=== PATIENT | male | born 1995 | race Caucasian/White ===

== ENCOUNTER 2016-05-13 02:37 | Emergency (ER) | payer OTHER ==
[2016-05-13 02:43] VITALS: TEMP 98.8
--- NOTE | 2016-05-13 02:50 | EDPHY ---
H & P Stated Complaint: abd pain and diarrhea HPI/ROS: HPI CHIEF COMPLAINT: Abdominal pain, periumbilical, diarrhea HISTORY OF PRESENT ILLNESS: This patient very pleasant 21-year-old male otherwise healthy no significant medical or surgical history he presents emergency room with periumbilical abdominal pain and diarrhea patient tells me that around 830 developed sudden onset of crampy lower abdominal pain is localized to his periumbilical region he had multiple episodes of watery brown diarrhea. Tells me 0 he had multiple episodes of diarrhea he could not get off the toilet. Denies vomiting, endorses nausea, he states that he did have a brief episode that his diarrhea resolved he tried to go to sleep however had persistent lower abdominal pain and then had return of diarrhea that is when he decided to come to the emergency room. Currently at this time he tells me that his abdominal pain is actually improved, he no longer has nausea and does not feel the urge to have diarrhea. Denies fever. He tells me that he ate at his parents house this evening he had tofu. Past Medical History: No significant medical history Past Surgical History: No significant surgical history Social History: [employer] student, denies illicit drugs, occasional alcohol use, denies tobacco Family History: Noncontributory ROS REVIEW OF SYSTEMS: A comprehensive 10 point review of systems is otherwise negative aside from elements mentioned in the history of present illness. Exam Constitutional triage nursing summary reviewed, vital signs reviewed, awake/ alert. Eyes normal conjunctivae and sclera, EOMI, PERRLA. HENT normal inspection, atraumatic, moist mucus membranes, no epistaxis, neck supple/ no meningismus, no raccoon eyes. Respiratory clear to auscultation bilaterally, normal breath sounds, no respiratory distress, no wheezing. Cardiovascular rate normal, regular rhythm, no murmur, no edema, distal pulses normal. Gastrointestinal mild tenderness palpation in the periumbilical region, there is no guarding or peritoneal signs, , no rebound, no guarding, normal bowel sounds, no distension, no pulsatile mass. Genitourinary no CVA tenderness. Musculoskeletal no midline vertebral tenderness, full range of motion, no calf swelling, no tenderness of extremities, no meningismus, good pulses, neurovascularly intact. Skin pink, warm, & dry, no rash, skin atraumatic. Neurologic awake, alert and oriented x 3, AAOx3, moves all 4 extremities equally, motor intact, sensory intact, CN II-XII intact, normal cerebellar, normal vision, normal speech. Psychiatric normal mood/affect. Heme/Lymph/Immune no lymphadenopathy. Differential diagnosis includes but is not limited to and in no particular order : GI illness, enteritis, gastroenteritis, appendicitis, gallbladder disease, diverticulitis, colitis, enteritis, perforated viscus, gastritis, GERD, esophagitis, urinary tract infection, pyelonephritis, kidney stones Medical Decision Making: This patient will have an IV established obtain blood work including abdominal labs lipase liver enzymes, CBC and BMP will be hydrated with IV fluids declined pain medicine at this time. He will need a CT scan of his abdomen pelvis with IV contrast to rule out acute appendicitis given his periumbilical pain however given large amounts watery diarrhea most likely viral illness GI illness. Will re-evaluate after fluids. Re-evaluation: CT scan of the Abdomen pelvis with IV contrast The results of the study are negative for acute inflammatory process there is enteritis seen on his CT scan, normal appendix visualized by radiologist . The study was read by Dr. Bell. I viewed the images myself on the PACS system. 0412: re-evaluation patient is resting comfortably did have 1 episode of diarrhea here in the emergency room I did not visualize any he did not save a stool specimen we will see if he can go again to give a stool specimen he does report bright red blood per rectum 0539: re-examination patient feels much better is requesting be discharged home. He was unable to produce a diarrheal stool sample. I did recommend if he has ongoing diarrhea, bloody stools vomiting worsening abdominal pain or fever he needs return immediately to the emergency room he understands this. We will refer her to GI. Most likely has enteritis with a GI illness with a diarrheal illness causing possible internal hemorrhoidal bleed. He does understand if he has dark black stool or continues to have significant rectal bleeding to return emergency room. Return if fever, abdominal pain or worsening diarrhea. He understands. [place] diet, clear fluids next 24 for 48 hours no fatty spicy greasy foods he understands. Source: Patient - Personal History Current Tetanus/Diphtheria Vaccine: Yes Current Tetanus Diphtheria and Acellular Pertussis (TDAP): Yes - Medical/Surgical History Hx Asthma: No Hx Chronic Respiratory Disease: No Hx Diabetes: No Hx Cardiac Disease: No Hx Renal Disease: No Hx Cirrhosis: No Hx Alcoholism: No Hx HIV/AIDS: No Hx Splenectomy or Spleen Trauma: No - Social History Smoking Status: Never smoked Constitutional: Initial Vital Signs Temperature (C) 37.1 C 05/13/16 02:40 Heart Rate 60 05/13/16 02:40 Respiratory Rate 18 05/13/16 02:40 Blood Pressure 120/71 05/13/16 02:40 O2 Sat (%) 97 05/13/16 02:40 O2 Delivery Mode Room Air Allergies/Adverse Reactions: No Known Allergies Allergy (Unverified 05/13/16 02:39) Home Medications: Medication Instructions Recorded Ondansetron HCl [Zofran] 4 mg PO Q4-6PRN PRN #10 tablet 05/13/16 Medical Decision Making - Data Points Laboratory Results: Laboratory Results 05/13/16 02:54 05/13/16 02:54 05/13/16 05/13/16 03:30 02:54 WBC 18.70 H 10^3/uL (3.80-9.50) RBC 5.79 10^6/uL (4.40-6.38) Hgb 15.2 g/dL (13.7-17.5) Hct 45.0 % (40.0-51.0) MCV 77.7 L fL (81.5-99.8) MCH 26.3 L pg (27.9-34.1) MCHC 33.8 g/dL (32.4-36.7) RDW 13.9 % (11.5-15.2) Plt Count 372 10^3/uL (150-400) MPV 9.2 fL (8.7-11.7) Neut % (Auto) 82.2 H % (39.3-74.2) Lymph % (Auto) 10.1 L % (15.0-45.0) [place] % (Auto) 5.6 % (4.5-13.0) Eos % (Auto) 1.1 % (0.6-7.6) Baso % (Auto) 0.3 % (0.3-1.7) Nucleat RBC Rel Count 0.0 % (0.0-0.2) Absolute Neuts (auto) 15.37 H 10^3/uL (1.70-6.50) Absolute Lymphs (auto) 1.89 10^3/uL (1.00-3.00) Absolute Monos (auto) 1.04 H 10^3/uL (0.30-0.80) Absolute Eos (auto) 0.20 10^3/uL (0.03-0.40) Absolute Basos (auto) 0.06 10^3/uL (0.02-0.10) Absolute Nucleated RBC 0.00 10^3/uL (0-0.01) Immature Gran % 0.7 % (0.0-1.1) Immature Gran # 0.14 H 10^3/uL (0.00-0.10) Sodium 143 mEq/L (134-144) Potassium 3.9 mEq/L (3.5-5.2) Chloride 102 mEq/L (97-110) Carbon Dioxide 26 mEq/l (22-31) Anion Gap 15 mEq/L (8-16) BUN 14 mg/dL (7-23) Creatinine 0.7 mg/dL (0.7-1.3) Estimated GFR > 60 Glucose 102 H mg/dL (70-100) Calcium 10.1 mg/dL (8.5-10.4) Total Bilirubin 0.8 mg/dL (0.1-1.4) Conjugated Bilirubin 0.4 mg/dL (0.0-0.5) Unconjugated Bilirubin 0.4 mg/dL (0.0-1.1) AST 48 IU/L (17-59) ALT 63 IU/L (21-72) Alkaline Phosphatase 67 IU/L (38-126) Total Protein 7.9 g/dL (6.3-8.2) Albumin 4.9 g/dL (3.5-5.0) Lipase 55.0 IU/L (23-300) Urine Color YELLOW Urine Appearance CLEAR Urine pH 6.0 (5.0-7.5) Ur Specific [place] 1.016 (1.002-1.030) Urine Protein NEGATIVE (NEGATIVE) Urine Ketones NEGATIVE (NEGATIVE) Urine Blood NEGATIVE (NEGATIVE) Urine Nitrate NEGATIVE (NEGATIVE) Urine Bilirubin NEGATIVE (NEGATIVE) Urine Urobilinogen NEGATIVE EU (0.2-1.0) Ur Leukocyte Esterase 1+ H (NEGATIVE) Urine RBC 1-3 /hpf (0-3) Urine WBC 15-25 H /hpf (0-3) Ur Epithelial Cells NONE SEEN /lpf (NONE-1+) Ur Culture Indicated? INDICATED H (NI) Urine Glucose NEGATIVE (NEGATIVE) Medications Given: Discontinued Medications Sodium Chloride (Ns) 2,000 mls @ 0 mls/hr IV ONCE ONE PRN Reason: Wide Open Stop: 05/13/16 02:56 Last Admin: 05/13/16 02:57 Dose: 2,000 mls Sodium Chloride (Ns) 1,000 mls @ 0 mls/hr IV ONCE ONE PRN Reason: Wide Open Stop: 05/13/16 04:12 Last Admin: 05/13/16 04:19 Dose: 1,000 mls Morphine Sulfate (Morphine) 4 mg IVP EDNOW ONE Stop: 05/13/16 04:12 Last Admin: 05/13/16 04:20 Dose: 4 mg Ondansetron HCl (Zofran) 4 mg IVP EDNOW ONE Stop: 05/13/16 04:12 Last Admin: 05/13/16 04:20 Dose: 4 mg Departure - Departure Disposition: Home, Routine, Self-Care Clinical Impression: Abdominal pain Qualifiers: Abdominal location: generalized Qualifier Code: (R10.84) Generalized abdominal pain Diarrhea Qualifiers: Diarrhea type: unspecified type Qualifier Code: (R19.7) Diarrhea, unspecified Condition: Good Instructions: Dehydration (ED), Acute Diarrhea (ED) Additional Instructions: 1. stay well-hydrated drink lots of clear fluids water or Gatorade 2. do not eating any spicy fatty greasy foods have a very bland diet for the next 48 hours 3. if You develops worsening abdominal pain fever or continue have severe diarrhea or vomiting you need to return to the emergency room Referrals: [place],. [Primary Care Provider] - As per Instructions Prescriptions: Ondansetron HCl [Zofran] 4 mg PO Q4-6PRN PRN #10 tablet PRN Reason: Nausea/Vomiting, Use 1st
[2016-05-13] MEDS ORDERED: NS 2,000 ML IV ONE (02:55)
[2016-05-13 03:08] LABS: % IMMATURE GRANULYOCYTES 0.7 % (0.0-1.1); ABSOLUTE IMMATURE GRANULOCYTES 0.14 10^3/uL (0.00-0.10); ADD DIFF? NO; ADD MORPH? NO; ADD SCAN? NO; ATYPICAL LYMPHOCYTE FLAG 0 (0-99); FRAGMENT RBC FLAG 0 (0-99); HEMOGLOBIN 15.2 g/dL (13.7-17.5); LEFT SHIFT FLG 10 (0-99); LIPEMIA HEMOLYSIS FLAG 90 (0-99); MEAN CELL HEMOGLOBIN 26.3 pg (27.9-34.1); MEAN CELL HEMOGLOBIN CONCENTR. 33.8 g/dL (32.4-36.7); MEAN CELL VOLUME 77.7 fL (81.5-99.8); MEAN PLATELET VOLUME 9.2 fL (8.7-11.7); PLATELET CLUMPS FLAG 10 (0-99); PLATELET COUNT 372 10^3/uL (150-400); RED BLOOD CELL COUNT 5.79 10^6/uL (4.40-6.38); RED CELL DISTRIBUTION WIDTH 13.9 % (11.5-15.2)
[2016-05-13] MEDS ORDERED: IOPAMIDOL (ISOVUE-300) 50 ML VIAL IV ONE (03:11)
[2016-05-13 03:27] LABS: ALANINE AMINOTRANSFERASE 63 IU/L (21-72); ALBUMIN 4.9 g/dL (3.5-5.0); ALKALINE PHOSPHATASE 67 IU/L (38-126); ANION GAP 15 mEq/L (8-16); ASPARTATE AMINOTRANSFERASE 48 IU/L (17-59); BILIRUBIN,TOTAL 0.8 mg/dL (0.1-1.4); BILIRUBIN-CONJUGATED 0.4 mg/dL (0.0-0.5); BILIRUBIN-UNCONJUGATED 0.4 mg/dL (0.0-1.1); CALCIUM 10.1 mg/dL (8.5-10.4); CARBON DIOXIDE 26 mEq/l (22-31); CHLORIDE 102 mEq/L (97-110); CREATININE 0.7 mg/dL (0.7-1.3); GLOMERULAR FILTRATION RATE > 60; GLUCOSE 102 mg/dL (70-100); POTASSIUM 3.9 mEq/L (3.5-5.2); SODIUM 143 mEq/L (134-144); TOTAL PROTEIN 7.9 g/dL (6.3-8.2)
[2016-05-13 03:46] LABS: COLOR YELLOW; LEUKOCYTE ESTERASE,URINE 1+ (NEGATIVE); NITRITE,URINE NEGATIVE (NEGATIVE)
[2016-05-13 04:07] LABS: WBC,URINE 15-25 /hpf (0-3)
[2016-05-13] MEDS ORDERED: NS 1,000 ML IV ONE (04:11)
[2016-05-13] MEDS ORDERED: ONDANSETRON 4 MG/2 ML VIAL IVP ONE (04:11)
[2016-05-13 05:47] VITALS: BP 124/71; PULSE 83; RESP 15; O2SAT 95
--- NOTE | 2016-05-13 09:32 | CT ---
CT Scan of the Abdomen and Pelvis (With Contrast) 0345 hours History: Abdominal pain, nausea, diarrhea. Technique: Axial computed tomographic images of the abdomen and pelvis were obtained with the unevent ful intravenous administration of 80 mL Isovue-300 contrast. No oral or rectal contrast which limits the study. Dose reduction techniques were utilized. CT Abdomen Findings: Lung bases: Normal. Liver: Normal. Biliary system: No obstruction. Spleen: Normal. Pancreas: Normal. Adrenals: Normal. Kidneys: No obstruction or solid masses. Abdominal Aorta: No aneurysm. No bowel obstruction, ascites, or significant retroperitoneal lymphadenopathy. Several fluid-filled l oops of small bowel without distention probably representing enteritis. No small bowel or colonic obs truction. CT Pelvis Findings: Appendix appears normal without inflammatory changes. Impression: 1. Possible mild small bowel enteritis without obstruction. 2. No CT evidence of appendicitis, abscess or bowel obstruction. Findings and recommendations discussed with Emergency Department physician, Dr. Avila, at 0355 hour s today. Final report concurs with initial preliminary interpretation.
== END 2016-05-13 05:46 | disposition home or self-care (01) ==
DX: R10.84 Generalized abdominal pain (principal); R19.7 Diarrhea, unspecified
CPT/HCPCS: 96374; J2405; Q9967